=== PATIENT | female | born 1985 | race Caucasian/White ===

== ENCOUNTER 2017-04-26 20:46 | Outpatient (CLI) | payer MEDICAID | END 2017-04-26 20:47 | disposition short-term general hospital (02) | LOC: EMS 20:46 | PROVIDERS: ATTEND Surgery | DX: O99.89 Other specified diseases and conditions complicating pregnancy, childbirth and the puerperium (principal); R53.1 Weakness; R44.9 Unspecified symptoms and signs involving general sensations and perceptions | CPT/HCPCS: A0425; A0429 ==

== ENCOUNTER 2017-06-10 08:06 | Outpatient (CLI) | payer OTHER, MEDICAID | END 2017-06-10 08:07 | disposition critical access hospital (66) | LOC: EMS 08:06 | PROVIDERS: ATTEND Surgery | DX: R06.02 Shortness of breath (principal); R52 Pain, unspecified ==

== ENCOUNTER 2017-06-10 08:39 | Inpatient (IN) | payer OTHER, MEDICAID ==
[2017-06-10] MEDS ORDERED: IPRATROPIUM/ALBUTEROL 3 ML NEB INH STA (08:54)
[2017-06-10] MEDS ORDERED: DEXAMETHASONE 10 MG/ML VIAL IVP STA (08:54)
[2017-06-10] MEDS ORDERED: SODIUM CHLORIDE 0.9% 1,000 ML IV ONE (08:54)
--- NOTE | 2017-06-10 09:07 | ED Physician Documentation ---
PD HPI DYSPNEA - Stated complaint Stated Complaint: SOA - Chief complaint Chief Complaint: Resp - History obtained from History obtained from: Patient, Family, EMS, Caregiver - History of Present Illness Timing - onset: Enter time, Today Timing - onset during: Rest Timing - duration: Hours Timing - details: Abrupt onset, Still present Inciting event(s): Other (on hospice since yesterday) Improved by: O2, Rest Associated symptoms: Fever, Cough, Wheezing, Chest pain / discomfort Similar symptoms before: Has not had sx before Recently seen: Admitted - Additional information Additional information: 31-year-old female in the terminal phases of glioblastoma was put on hospice yesterday after being discharged from [facility] the day prior. Review of Systems Constitutional: reports: Fever, Fatigue Cardiac: reports: Palpitations Respiratory: reports: Dyspnea, Wheezing PD PAST MEDICAL HISTORY - Past Medical History Past Medical History: Yes Neuro: Seizure disorder - Past Surgical History Past Surgical History: Yes - Present Medications Home Medications: Ambulatory Orders Medication Instructions Recorded Confirmed Lamotrigine 250 mg PO BID 12/14/13 06/10/17 Control Pills 1 tab ORAL DAILY 01/09/15 06/10/17 Acetaminophen 500 mg PO QID 06/10/17 06/10/17 Dexamethasone [Decadron] 4 mg PO DAILY 06/10/17 06/10/17 Gabapentin 600 mg PO TID 06/10/17 06/10/17 Haloperidol 0.5 ml PO Q1HR PRN 06/10/17 06/10/17 Hydromorphone HCl 10 mg PO Q3HR 06/10/17 06/10/17 LORazepam [Ativan] 1 mg PO Q4HR PRN 06/10/17 06/10/17 Methadone 40 mg PO TID 06/10/17 06/10/17 Ondansetron Odt [Zofran Odt] 4 mg PO TID PRN 06/10/17 06/10/17 Pantoprazole Sodium 40 mg PO DAILY 06/10/17 06/10/17 Sennosides [Senna Laxative] 8.6 mg PO DAILY 06/10/17 06/10/17 levETIRAcetam [Keppra] 1,250 mg PO BID 06/10/17 06/10/17 - Allergies Allergies/Adverse Reactions: Allergies Allergy/AdvReac Type Severity Reaction Status Date / Time Penicillins Allergy Hives Verified 01/09/15 16:47 - Social History Does the pt smoke?: No Smoking Status: Never smoker Does the pt drink ETOH?: Yes Does the pt have substance abuse?: No - Immunizations Immunizations are current?: Yes Immunizations: TDAP >10years/unknown - POLST Patient has POLST: No PD ED PE NORMAL - Vitals Vital signs reviewed: Yes (febrile tachy tachypneic hypertensive and hypoxic) - General General: Other (Thin 31 y/o female struggling for a breath with audible wheeze and decreased LOC. ) - HEENT HEENT: Other (There are healed scars to the scalp and alopecia is present ) - Neck Neck: Other (The patient's neck is twisted to the right. ) - Cardiac Cardiac: Other (tachy to 120) - Respiratory Respiratory: Other (tachypneic with fine wheezes and diminished breath sounds. ) - Abdomen Abdomen: Other (thin firm ?tender) - Derm Derm: Normal color, Warm and dry - Extremities Extremities: No edema, Other (There are contractures of the left hand ) Results - Vitals Vitals: Vital Signs - 24 hr 06/10/17 06/10/17 08:40 09:08 Temperature 38.1 C H Heart Rate 135 H 149 H Respiratory 28 H 24 Rate Blood Pressure 125/85 H O2 Saturation 86 L Oxygen O2 Source Nasal cannula Oxygen Flow Rate 4 - Rads (name of study) 1 view chest Radiology: Prelim report reviewed (Impression: 1. Extensive bilateral interstitial and airspace opacities and bilateral lung nodularity. 2. Large right pleural effusion. 3. Small left pleural effusion. 4. Bilateral lytic rib lesions.), EMP read indepedently, See rad report Procedures - IVC sono (time) 0900 Bedside IVC sono: IVC measures (cm) (0.7), Significant dehydration PD MEDICAL DECISION MAKING - ED course Complexity details: reviewed old records, reviewed results, re-evaluated patient , considered differential, d/w family ED course: 31-year-old female with a history of glioblastoma has been placed in hospice care yesterday and today is in respiratory distress. She does appear to be at the end of life and comfort measures are provided here. She is given some dexamethasone some dilaudid and some phenobarbital. The hospice nurse and the hospice doctor Dr. Atwood are present here in the emergency department as well and the family has requested admission to the hospital. Departure - Departure Disposition: 66 [facility] DC/Xfer Clinical Impression: End of life care Respiratory failure Qualifiers: Chronicity: acute on chronic Respiratory failure complication: hypoxia Qualified Code(s): J96.21 - Acute and chronic respiratory failure with hypoxia Condition: Critical Discharge Date/Time: 06/10/17 12:45
[2017-06-10] MEDS ORDERED: IPRATROPIUM/ALBUTEROL 3 ML NEB INH ONE (09:11)
[2017-06-10] MEDS ORDERED: DEXAMETHASONE 10 MG/ML VIAL ONE (09:21)
[2017-06-10] MEDS ORDERED: PHENobarbital 65 MG/ML VIAL IVP STA ×2 (09:28→10:28)
[2017-06-10] MEDS ORDERED: HYDROmorphone 0.5 MG/0.5 ML SYRINGE IVP STA (09:36)
[2017-06-10] MEDS ORDERED: PHENobarbital 65 MG/ML VIAL ONE (09:45)
[2017-06-10] MEDS ORDERED: HYDROmorphone 1 MG/ML SYRINGE ONE (09:47)
--- NOTE | 2017-06-10 10:04 | XRAY Preliminary Report ---
Exam: XR CHEST 1 VIEW IMPRESSION: 1. Extensive bilateral interstitial and airspace opacities and bilateral lung nodularity. 2. Large right pleural effusion. Small left pleural effusion. 3. Bilateral lytic rib lesions. [facility] SITE ID: [id number]
--- NOTE | 2017-06-10 10:06 | XRAY Report ---
EXAM: CHEST RADIOGRAPHY EXAM DATE: 06/10/2017 09:41 AM. CLINICAL HISTORY: Shortness of air. History of metastatic cancer. COMPARISON: None. TECHNIQUE: 1 view. FINDINGS: Lungs/Pleura: Extensive bilateral interstitial and airspace opacities. Bilateral lung nodularity. Lar ge right pleural effusion. Small left pleural effusion. Dense bibasilar opacities. No pneumothorax. L mckay apices partly obscured. Mediastinum: Cardiac contour is obscured. Mediastinal contour is prominent. Right-sided PICC with the tip in the mid SVC. Other: Lytic rib lesions are present bilaterally and on the right involving the eighth and ninth rib and on the left in the eighth rib. IMPRESSION: 1. Extensive bilateral interstitial and airspace opacities and bilateral lung nodularity. 2. Large right pleural effusion. Small left pleural effusion. 3. Bilateral lytic rib lesions. [facility] Referring Provider Line: [phone] SITE ID: [id number]
[2017-06-10] MEDS ORDERED: PHENOBARBITAL IV SCH ×6 (11:00→13:08)
[2017-06-10] MEDS ORDERED: SODIUM CHLORIDE 0.9% IV SCH ×10 (11:00→19:30)
[2017-06-10] MEDS ORDERED: SODIUM CHLORIDE FLUSH 0.9% 10 ML SYRINGE IVP PRN (11:17)
[2017-06-10] MEDS ORDERED: GLYCOPYRROLATE 1 MG/5 ML VIAL SUBQ PRN (11:20)
[2017-06-10] MEDS ORDERED: ATROPINE 1% OPHTH DROPS 2 ML SL PRN (11:20)
[2017-06-10] MEDS ORDERED: PHENobarbital 65 MG/ML VIAL IM ONE (11:28)
[2017-06-10] MEDS ORDERED: HYDROMORPHONE IV SCH ×4 (13:00→19:30)
[2017-06-10] MEDS: SODIUM CHLORIDE FLUSH 0.9% 10 ML SYRINGE IVP SCH ×2 (13:37→21:41)
[2017-06-10] MEDS ORDERED: PHENobarbital 65 MG/ML VIAL IV ONE (14:07)
[2017-06-10] MEDS: SODIUM CHLORIDE 0.9% IV SCH ×3 (15:30→21:40)
[2017-06-10] MEDS: PHENOBARBITAL IV SCH ×3 (15:30→21:40)
--- NOTE | 2017-06-10 19:44 | HISTORY & PHYSICAL EXAMINATION ---
DATE OF ADMISSION: 06/10/2017 HISTORY OF PRESENT ILLNESS: This is a 31-year-old white female with a history of seizure disorder for several years on treatment and a history of terminal glioblastoma of the brain, now diagnosed with metastasis. She also was and 1 month ago delivered a premature baby by who is still in the intensive care unit in a [facility]. The patient has been on high doses of methadone and Dilaudid for pain control, with pain caused by her metastatic cancer. Just yesterday, the patient was seen by a hospice nurse and admitted under hospice care. This morning at about 2 a.m., she started to be fidgety, complained of pain and was confused and at 4 a.m. developed severe dyspnea and 911 was called by the family. She was brought to the emergency room , where she was noted to have respiratory distress and complaining of pain. The emergency room reached out to her hospice caregivers who saw the patient in the emergency room and advised management with Dilaudid IV and phenobarbital IV, which did control her pain, and she became sedated and was comfortable. It has been determined by family (her mother is her POA) and the significant-other, who is at her bedside, that she will be admitted for IV pain management and end- of-life care with hospice consult. The patient gives me no information currently as she is obtunded from receiving her narcotic and phenobarbital. MEDICATIONS AT HOME 1. Tylenol p.r.n. 2. Decadron 4 mg daily. 3. Gabapentin 600 t.i.d. 4. Haldol 0.5 mg q.1h. p.r.n. nausea. 5. Dilaudid 10 mg p.o. every 3 hours around the clock. 6. Ativan 1 mg p.o. q.4h. p.r.n. nausea. 7. Methadone 40 mg p.o. t.i.d. around the clock. 8. Zofran 4 mg t.i.d. p.r.n. nausea. 9. Pantoprazole 40 mg p.o. daily. 10. Senna laxative 8.6 mg p.o. daily. 11. Keppra 1250 mg p.o. b.i.d. 12. A control pill. 13. Lamotrigine 250 mg p.o. b.i.d. ALLERGIES: PENICILLIN, WHICH CAUSED HIVES. SOCIAL HISTORY: The patient lives with her significant other and her mother lives next door. The patient was never a smoker. The patient drinks alcohol socially. The patient now has a DNR status and was under hospice care for the last 24 hours. REVIEW OF SYSTEMS: A comprehensive review of systems was determined from the mother and significant other and is negative except for what is described in the HPI. FAMILY HISTORY: Negative for cancer, diabetes. PHYSICAL EXAMINATION GENERAL: An obtunded white female. She responds to sternal rub by grimacing and moving. VITAL SIGNS: Blood pressure 125/85. Pulse is 100. She has a temperature of 38.1 temporally. Her oxygen saturation was 86% initially which improved to over 90% after an inhaler treatment and improvement of her pain. HEENT: Shows alopecia from prior brain surgeries and several cranial suture lines. Her mucosa is moist. NECK: Shows no JVD at a 20-degree upright angle. CHEST: Clear at the anterior bases. HEART: Sounds are tachycardic with no audible murmur. There is no RV heave. ABDOMEN: Soft. EXTREMITIES: No clubbing, cyanosis or edema. Labs were not drawn. Chest x-ray showed extensive bilateral interstitial airspace opacities and bilateral lung nodularity and a large right pleural effusion and a small left pleural effusion. There are also bilateral lytic lesions of the ribs. EKG was not done. DIAGNOSES 1. Terminal glioblastoma of the brain with metastasis. 2. Shortness of breath. 3. Pleural effusions. 4. Pain crisis. 5. Admitted for hospice care. PLAN: Comfort care will be started and recommendations from hospice consultation will be continued, including IV Dilaudid drip and IV phenobarbital drip. A Chandra catheter will be used for comfort as well, as per their advice. CODE STATUS: She has a DNR status. JOB #: [id number] EXT JOB #:[id number] MTDDestiny
[2017-06-10] MEDS: SCOPOLAMINE PATCH TOP SCH (21:40)
[2017-06-11] MEDS: PHENOBARBITAL IV SCH ×9 (00:29→23:58)
[2017-06-11] MEDS: SODIUM CHLORIDE 0.9% IV SCH ×11 (00:29→23:58)
[2017-06-11] MEDS ORDERED: HYDROMORPHONE IV SCH ×4 (05:08→23:52)
[2017-06-11] MEDS ORDERED: SODIUM CHLORIDE 0.9% IV SCH ×5 (05:08→23:52)
[2017-06-11] MEDS: SODIUM CHLORIDE FLUSH 0.9% 10 ML SYRINGE IVP SCH ×3 (06:19→20:17)
[2017-06-11] MEDS ORDERED: MORPHINE 2 MG/ML SYRINGE IVP ONE (08:00)
[2017-06-11] MEDS ORDERED: PHENOBARBITAL IV SCH (08:36)
[2017-06-11] MEDS ORDERED: PHENobarbital 65 MG/ML VIAL IV ONE ×3 (08:36→10:05)
[2017-06-11] MEDS ORDERED: HYDROmorphone 0.5 MG/0.5 ML SYRINGE IVP ONE (10:09)
[2017-06-11] MEDS ORDERED: levETIRAcetam 250 MG TABLET PO PRN (10:11)
[2017-06-11] MEDS ORDERED: HYDROmorphone 0.5 MG/0.5 ML SYRINGE IVP SCH (11:00)
[2017-06-11] MEDS ORDERED: levETIRAcetam 250 MG TABLET PO SCH (11:00)
[2017-06-11] MEDS ORDERED: HYDROmorphone 0.5 MG/0.5 ML SYRINGE ONE ×2 (11:06)
[2017-06-11] MEDS ORDERED: PHENobarbital 65 MG/ML VIAL IVP ONE (11:55)
[2017-06-11] MEDS: HYDROMORPHONE IV SCH ×2 (12:37→23:18)
[2017-06-11] MEDS: SCOPOLAMINE PATCH TOP SCH (16:46)
[2017-06-11] MEDS: HYDROmorphone 1 MG/ML SYRINGE IVP PRN ×3 (20:17→23:21)
[2017-06-11 22:12] VITALS: BP 130/90
[2017-06-11] MEDS ORDERED: SODIUM CHLORIDE 0.9% 1,000 ML IV ONE (22:27)
[2017-06-11] MEDS ORDERED: HYDROmorphone 1 MG/ML SYRINGE IVP PRN (23:42)
--- NOTE | 2017-06-11 23:50 | PROVIDER PROGRESS NOTE ---
Assessment/Plan - Problem List (1) End of life care Assessment/Plan: Pt had several episodes of break-thru pain and Hospice MD and RNs have advised escalating doses of iv Dilaudid drip and iv Phenobarb drip. Continue with comfort care. - Current Meds Current Meds: Current Medications Generic Name Dose Route Start Last Admin Trade Name Freq PRN Reason Stop Dose Admin Phenobarbital 125 mg/ Sodium 100 mls @ 40 mls/hr 06/11/17 10:15 06/11/17 21: 28 Chloride IV 50 mg/hr .Q2H30M SAMMIE 40 mls/hr 50 MG/HR Administration Hydromorphone HCl 50 mg/ 100 mls @ 10 mls/hr 06/11/17 13:00 06/11/17 23:18 Sodium Chloride IV 5 mg/hr .Q10H SAMMIE 10 mls/hr 5 MG/HR Administration Scopolamine HBr 1 patch 06/10/17 12:00 06/11/17 16:46 Transderm-Scop TOP 1 patch Q3D SAMMIE Administration Sodium Chloride 10 ml 06/10/17 14:00 06/11/17 20:17 Normal Saline Flush 0.9% IVP 10 ml Q8HR SAMMIE Administration - Additional Planning My Orders: My Active Orders 06/11/17 10:11 levETIRAcetam [Keppra] 1,250 mg PO BID PRN 06/11/17 10:12 DIET [NPO except Meds] [DIET] 06/11/17 10:15 Sodium Chloride 0.9% 100Ml [Normal Saline 0.9% 100Ml] 100 ml PHENobarbital INJ 125 mg IV 50 mg/hr 06/11/17 13:00 Sodium Chloride 0.9% 100Ml [Normal Saline 0.9% 100Ml] 95 ml HYDROmorphone [ Dilaudid] 50 mg IV 5 mg/hr Subjective - Subjective Patient Reports: Other (Sedated but intermittently awake and in pain 4-810) Objective Vital Signs: Vital Signs - 24 hr 06/11/17 06/11/17 06/11/17 05:15 08:25 15:30 Temperature 36.7 C Heart Rate [ 111 H 115 H 130 H Radial] Respiratory 20 18 14 Rate Blood Pressure 118/71 [Left Brachial artery] O2 Saturation 95 94 93 06/11/17 06/11/17 06/11/17 17:00 20:15 22:11 Temperature 36.9 C Heart Rate [ 136 H 135 H 143 H Radial] Respiratory 21 20 Rate Blood Pressure 134/87 H 130/90 H [Left Brachial artery] O2 Saturation 93 93 06/11/17 22:18 Temperature 36.8 C Heart Rate [ Radial] Respiratory Rate Blood Pressure [Left Brachial artery] O2 Saturation Oxygen O2 Source Nasal cannula I&O (Last 24 Hrs): Intake and Output Totals x24h 06/09/17 06/10/17 06/11/17 23:59 23:59 23:59 Intake Total 1455.8254 1535.267 Output Total 100 1950 Balance 1355.8254 -414.733 General: Other (Sedated) HEENT: Other (S/P brain sugeries and has alopecia) Cardiovascular: Regular rate Respiratory: No respiratory distress Extremities: No edema
[2017-06-11] MEDS ORDERED: FUROSEMIDE 20 MG/2 ML VIAL IVP STA (23:51)
[2017-06-11] MEDS ORDERED: LORazepam 2 MG/ML SYRINGE IVP PRN (23:51)
[2017-06-12] MEDS: SODIUM CHLORIDE 0.9% IV SCH (02:44)
[2017-06-12] MEDS: PHENOBARBITAL IV SCH (02:44)
--- NOTE | 2017-06-12 05:21 | DISCHARGE SUMMARY ---
Discharge Summary Admit Date: 06/10/17 Discharge Date: 06/12/17 (Time of 04:48) Discharging Provider: Kirby Padilla MD Primary Care Provider: Sasha HAGAN Code Status: Do Not Attempt Resuscitation Condition at Discharge: Critical Discharge Disposition: 20 - DIAGNOSES Admission Diagnoses: 1. Terminal glioblastoma of the brain with metastasis 2. Shortness of breath 3. Pleural effusions 4. Pain crisis Discharge Diagnoses with Status of Each Condition: 1. Cardiopulmonary arrest: 2. Terminal glioblastoma of the brain with metastasis: 3. Shortness of breath: 3. Pleural effusions: 4. Pain crisis: - HPI History of Present Illness: Patient is a 31-year-old female with a past medical history of seizure disorder for several years on treatment and a history of terminal glioblastoma of the brain, now diagnosed with metastasis. The patient was recently and delivered a premature baby by 1 month earlier who is still in the intensive care unit in [place]. The patient has been on high doses of methadone and Dilaudid for pain control for her metastasis. The day prior to arrival to the emergency department the patient was seen by a hospice nurse and admitted under hospice care. On the morning of hesitation to the emergency department the patient began getting very fidgety and complained of pain she became confused then developed severe dyspnea and 911 was called as the family felt they could not handle the patient at home. The patient was noted to be in respiratory distress and complaining of pain when EMS arrived at the scene. The patient arrived in the emergency department and continued to have respiratory distress. The physician in the emergency department contacted hospice who saw the patient in the emergency department and advised management with IV Dilaudid and IV phenobarbital which did control the patient's pain and she became sedated and was comfortable. The patient was admitted to the hospital for IV pain management and end-of-life care with hospice consult. - HOSPITAL COURSE Hospital Course: The patient was managed in the hospital for her pain by hospice and the hospitalist team. The patient continued to require increasing amounts of IV Dilaudid on the [employer] and breakthrough medication. The patient finally was comfortable in her last few hours of life. The patient of cardiopulmonary arrest at 04:48 on 06/12/2017 with her significant other at the bedside. The patient's DPOAE her mother Martín was contacted by telephone and made aware of the patient's . We passed our condolences on to both the patient's mother and the patient's significant other. - ALLERGIES Allergies/Adverse Reactions: Allergies Allergy/AdvReac Type Severity Reaction Status Date / Time Penicillins Allergy Hives Verified 01/09/15 16:47 - MEDICATIONS Home Medications: Ambulatory Orders Medication Instructions Recorded Confirmed Lamotrigine 250 mg PO BID 12/14/13 06/10/17 Control Pills 1 tab ORAL DAILY 01/09/15 06/10/17 Acetaminophen 500 mg PO QID 06/10/17 06/10/17 Dexamethasone [Decadron] 4 mg PO DAILY 06/10/17 06/10/17 Gabapentin 600 mg PO TID 06/10/17 06/10/17 Haloperidol 0.5 ml PO Q1HR PRN 06/10/17 06/10/17 Hydromorphone HCl 10 mg PO Q3HR 06/10/17 06/10/17 LORazepam [Ativan] 1 mg PO Q4HR PRN 06/10/17 06/10/17 Methadone 40 mg PO TID 06/10/17 06/10/17 Ondansetron Odt [Zofran Odt] 4 mg PO TID PRN 06/10/17 06/10/17 Pantoprazole Sodium 40 mg PO DAILY 06/10/17 06/10/17 Sennosides [Senna Laxative] 8.6 mg PO DAILY 06/10/17 06/10/17 levETIRAcetam [Keppra] 1,250 mg PO BID 06/10/17 06/10/17 - PHYSICAL EXAM AT DISCHARGE Physical Exam Other/Comments: Patient's eyes were closed when opened she had no pupillary reflex, no corneal reflex. Patient had no chest rise, no breath sounds, no pulse, no heart sounds. Patient's extremities were cold to touch and the patient was lifeless. - LABS Other Lab Results: None - DIAGNOSTIC IMAGING Diagnostic Imaging Results Comments: Chest x-ray Impression: 1. Extensive bilateral interstitial and airspace opacities in bilateral lung with nodularity. 2. Large right pleural effusion. Small left pleural effusion. 3. Bilateral lytic rib lesions. - FOLLOW UP Follow Up: Patient's remains will be released to the home of her mother's choice - TIME SPENT Time Spent in Discharge (Minutes): 35 (Fax to PCP)
[2017-06-12] MEDS: SODIUM CHLORIDE FLUSH 0.9% 10 ML SYRINGE IVP SCH (07:08)
== END 2017-06-12 04:48 | disposition expired | DRG 948 ==
LOC: EDUNIT# → ED 08:39 → MS3 11:15
PROVIDERS: ADMIT Internal Medicine; ATTEND Internal Medicine
DX: G89.3 Neoplasm related pain (acute) (chronic) (principal); C71.9 Malignant neoplasm of brain, unspecified; C79.51 Secondary malignant neoplasm of bone; J90 Pleural effusion, not elsewhere classified; I46.8 Cardiac arrest due to other underlying condition; G40.909 Epilepsy, unspecified, not intractable, without status epilepticus; R06.02 Shortness of breath; Z66 Do not resuscitate; Z92.3 Personal history of irradiation; Z92.21 Personal history of antineoplastic chemotherapy
CPT/HCPCS: 71010; 94640; 96361; 96374; 96375; 96376; 99283; 99284